=== PATIENT | female | born 1940 | race Caucasian/White ===

== ENCOUNTER 2016-11-27 08:33 | Outpatient (CLI) | payer MEDICARE, OTHER | END 2016-11-27 08:34 | disposition home or self-care (01) | DX: I10 Essential (primary) hypertension (principal); R73.01 Impaired fasting glucose; E78.5 Hyperlipidemia, unspecified ==

== ENCOUNTER 2016-12-11 10:20 | Outpatient (CLI) | payer MEDICARE, OTHER | END 2016-12-11 10:21 | disposition home or self-care (01) | DX: R31.29 Other microscopic hematuria (principal) ==

== ENCOUNTER 2016-12-20 11:16 | Outpatient (CLI) | payer MEDICARE, OTHER ==
[2016-12-20] MEDS ORDERED: IOPAMIDOL-300 100 ML VIAL IVP ONE (11:59)
== END 2016-12-20 11:17 | disposition home or self-care (01) ==
DX: R31.29 Other microscopic hematuria (principal); K57.30 Diverticulosis of large intestine without perforation or abscess without bleeding
CPT/HCPCS: 74178; Q9967

== ENCOUNTER 2017-03-19 10:19 | Outpatient (CLI) | payer MEDICARE, OTHER ==
--- NOTE | 2017-03-20 17:45 | Mammography Report ---
DIGITAL SCREENING MAMMOGRAM: 03/19/2017 CLINICAL INDICATION: A 76-year-old nulliparous patient, for screening. COMPARISON: 03/2015, 02/2014, 02/2013, 02/2012, 01/2011, 01/2010, 12/2008, 12/2007. TECHNIQUE: Routine CC and MLO projections were obtained of the breasts. FINDINGS: The breasts again demonstrate heterogeneously dense fibroglandular parenchyma bilaterally. Coarse, typically benign calcifications are present. Intramammary lymph nodes are stable. No suspici ous masses, clustered microcalcifications, or regions of architectural distortion are identified. IMPRESSION: BENIGN FINDINGS. RECOMMENDATION: ROUTINE ANNUAL SCREENING UNLESS OTHERWISE CLINICALLY INDICATED. BIRADS CATEGORY 2-BENIGN FINDINGS. STANDARD QUALIFYING STATEMENTS 1. This examination was reviewed with the aid of Computer-Aided Detection (CAD). 2. A negative or benign imaging report should not delay biopsy if clinically suspicious findings are present. Consider surgical consultation if warranted. More than 5% of cancers are not identified by i maging. 3. Dense breasts may obscure an underlying neoplasm. JOB #: [id number] EXT JOB #:[id number]
== END 2017-03-19 10:20 | disposition home or self-care (01) ==
LOC: DI 10:19
PROVIDERS: ATTEND Family Medicine
DX: Z12.31 Encounter for screening mammogram for malignant neoplasm of breast (principal)
CPT/HCPCS: 77067

== ENCOUNTER 2017-11-01 08:04 | Outpatient (CLI) | payer MEDICARE, OTHER ==
[2017-11-01 08:32] LABS: BASOPHILS # (AUTO) 0.1 10^3/uL (0.0-0.1); BASOPHILS % (AUTO) 1.3 %; EOSINOPHILS # (AUTO) 0.2 10^3/uL (0.0-0.7); EOSINOPHILS % (AUTO) 2.6 %; HGB - HEMOGLOBIN 13.6 g/dL (12.0-16.0); LYMPHOCYTES # (AUTO) 1.6 10^3/uL (1.5-3.5); LYMPHOCYTES % (AUTO) 20.3 %; MEAN CORPUSCULAR HEMOGLOBIN 33.6 pg (27.0-31.0); MEAN CORPUSCULAR HGB CONC 33.9 g/dL (32.0-36.0); MEAN CORPUSCULAR VOLUME 98.9 fL (81.0-99.0); MEAN PLATELET VOLUME 7.9 fL (7.9-10.8); MONOCYTES # (AUTO) 0.7 10^3/uL (0.0-1.0); NEUTROPHILS # (AUTO) 5.1 10^3/uL (1.5-6.6); NEUTROPHILS % (AUTO) 66.8 %; PLT - PLATELET COUNT 204 10^3/uL (130-450); RED BLOOD COUNT 4.06 10^6/uL (4.20-5.40); RED CELL DISTRIBUTION WIDTH 12.6 % (12.0-15.0); WHITE BLOOD COUNT 7.6 x10^3/uL (4.8-10.8)
[2017-11-01 08:48] LABS: ALBUMIN 3.9 g/dL (3.2-5.5); ALBUMIN/GLOBULIN RATIO 1.1 (1.0-2.2); ALKALINE PHOSPHATASE 70 IU/L (42-121); ALT ALANINE AMINOTRANSFERASE 17 IU/L (10-60); AST ASPARTATE AMINOTRANSFERASE 20 IU/L (10-42); BILIRUBIN,TOTAL 0.5 mg/dL (0.2-1.0); BUN - BLOOD UREA NITROGEN 14 mg/dL (6-20); CALCIUM 8.6 mg/dL (8.5-10.3); CARBON DIOXIDE - CO2 24 mmol/L (21-32); CHLORIDE 101 mmol/L (101-111); CHOL/HDL RATIO 4.7 (<4.4); CHOLESTEROL 173 mg/dL; CREATININE 0.9 mg/dL (0.4-1.0); GFR - MDRD 61 (>89); GLUCOSE 123 mg/dL (70-100); HDL CHOLESTEROL 37 mg/dL; LDL CHOLESTEROL,CALCULATED 96 mg/dL; LDL/HDL RATIO 2.6 (<4.4); SODIUM 136 mmol/L (135-145); TOTAL PROTEIN 7.4 g/dL (6.7-8.2); VLDL CHOLESTEROL 40 mg/dL
== END 2017-11-01 08:05 | disposition home or self-care (01) ==
LOC: LAB 08:04
PROVIDERS: ATTEND Family Medicine
DX: I10 Essential (primary) hypertension (principal); E78.5 Hyperlipidemia, unspecified
CPT/HCPCS: 36415; 80053; 80061; 83721; 85025

== ENCOUNTER 2017-11-08 07:41 | Outpatient (CLI) | payer MEDICARE, OTHER ==
[2017-11-08 08:47] LABS: HB2 TOTAL 14.9 g/dL; HEMOGLOBIN A1C 0.61 g/dL; HEMOGLOBIN A1C % 5.9 % (4.6-6.2)
== END 2017-11-08 07:42 | disposition home or self-care (01) ==
LOC: LAB 07:41
PROVIDERS: ATTEND Family Medicine
DX: R73.01 Impaired fasting glucose (principal)
CPT/HCPCS: 36415; 82947; 83036

== ENCOUNTER 2018-01-27 08:22 | Outpatient (CLI) | payer MEDICARE, OTHER ==
[2018-01-27 13:19] LABS: ALBUMIN 4.1 g/dL (3.2-5.5); ALBUMIN/GLOBULIN RATIO 1.1 (1.0-2.2); BILIRUBIN,TOTAL 0.4 mg/dL (0.2-1.0); CALCIUM 8.8 mg/dL (8.5-10.3); CREATININE 0.7 mg/dL (0.4-1.0); TOTAL PROTEIN 7.7 g/dL (6.7-8.2)
[2018-01-27 13:30] LABS: BASOPHILS # (AUTO) 0.1 10^3/uL (0.0-0.1); BASOPHILS % (AUTO) 1.1 %; EOSINOPHILS # (AUTO) 0.3 10^3/uL (0.0-0.7); EOSINOPHILS % (AUTO) 3.4 %; LYMPHOCYTES # (AUTO) 1.6 10^3/uL (1.5-3.5); LYMPHOCYTES % (AUTO) 18.8 %; MEAN CORPUSCULAR HGB CONC 34.5 g/dL (32.0-36.0); MEAN CORPUSCULAR VOLUME 98.7 fL (81.0-99.0); MEAN PLATELET VOLUME 8.9 fL (7.9-10.8); MONOCYTES # (AUTO) 0.7 10^3/uL (0.0-1.0); MONOCYTES % (AUTO) 7.9 %; NEUTROPHILS % (AUTO) 68.8 %; PLT - PLATELET COUNT 177 10^3/uL (130-450); RED CELL DISTRIBUTION WIDTH 12.7 % (12.0-15.0); WHITE BLOOD COUNT 8.7 x10^3/uL (4.8-10.8)
== END 2018-01-27 08:23 | disposition home or self-care (01) ==
LOC: LAB.WCP 08:22
PROVIDERS: ATTEND Family Medicine
DX: R10.9 Unspecified abdominal pain (principal); R05 Cough
CPT/HCPCS: 36415; 80053; 82150; 83690; 85025

== ENCOUNTER 2018-01-31 08:08 | Outpatient (CLI) | payer MEDICARE, OTHER ==
[2018-01-31] MEDS ORDERED: IOPAMIDOL-300 50 ML VIAL ONE (08:35)
[2018-01-31] MEDS ORDERED: IOPAMIDOL-300 100 ML VIAL ONE (08:35)
[2018-01-31] MEDS ORDERED: IOPAMIDOL-300 100 ML VIAL IVP ONE (09:55)
[2018-01-31] MEDS ORDERED: IOPAMIDOL-300 50 ML VIAL PO ONE (09:55)
--- NOTE | 2018-01-31 12:20 | CT Report ---
CT ABDOMEN AND PELVIS WITH CONTRAST: 01/31/2018 CLINICAL INDICATION: Pain, history of bladder cancer. COMPARISON: 12/20/2016. TECHNIQUE: Axial CT images of the abdomen and pelvis were obtained with 100 mL Isovue-300 intravenously as well as oral contrast. FINDINGS: Limited evaluation of the lung bases demonstrates a moderate hiatal hernia. ABDOMEN: The liver demonstrates diffuse decrease in attenuation, compatible with fatty infiltration. No focal parenchymal lesion or biliary dilatation is seen. The patient is status post cholecystectomy. The spleen, pancreas, kidneys and adrenal glands are unremarkable. No bowel dilatation, free gas, or free fluid is present. No abdominal adenopathy is seen. PELVIS: The pelvic organs appear unremarkable. No pelvic adenopathy or free fluid is present. Sigmoid diverticulosis is present, without CT evidence of diverticulitis. Osseous structures demonstrate degenerative changes. IMPRESSION: FATTY INFILTRATION OF THE LIVER. DIVERTICULOSIS WITHOUT CT EVIDENCE OF DIVERTICULITIS. MODERATE HIATAL HERNIA. CT DOSE REDUCTION STATEMENT In accordance with CT protocol optimization, one or more of the following dose reduction techniques were utilized for this exam: automated exposure control, adjustment of mA and/or KV based on patient size, or use of iterative reconstructive technique. TD: 01/31/2018 12:19 CINDY
== END 2018-01-31 08:09 | disposition home or self-care (01) ==
LOC: DI 08:08
PROVIDERS: ATTEND Family Medicine
DX: K76.0 Fatty (change of) liver, not elsewhere classified (principal); K57.30 Diverticulosis of large intestine without perforation or abscess without bleeding; K44.9 Diaphragmatic hernia without obstruction or gangrene
CPT/HCPCS: 74177; Q9967

== ENCOUNTER 2018-03-06 17:03 | Outpatient (CLI) | payer MEDICARE, OTHER ==
--- NOTE | 2018-03-07 10:10 | XRAY Report ---
THREE VIEW LEFT KNEE: 03/06/2018 CLINICAL INDICATION: Fall, pain. FINDINGS: AP, lateral, sunrise views of the left knee demonstrate no evidence of fracture or dislocation. The joint spaces demonstrate mild osteoarthritis. No effusion is present. IMPRESSION: MILD OSTEOARTHRITIS. NO EVIDENCE OF FRACTURE. TD: 03/07/2018 10:02
--- NOTE | 2018-03-07 10:10 | XRAY Report ---
NASAL BONES: 03/06/2018 CLINICAL INDICATION: Fall, pain. FINDINGS: Bilateral lateral views of the nasal bones demonstrate no evidence of fracture. The nasal septum is midline. The visualized paranasal sinuses demonstrate no air fluid levels. IMPRESSION: NO EVIDENCE OF NASAL BONE FRACTURE. TD: 03/07/2018 10:03
== END 2018-03-06 17:04 | disposition home or self-care (01) ==
LOC: DI 17:03
PROVIDERS: ATTEND Family Medicine
DX: M17.12 Unilateral primary osteoarthritis, left knee (principal); Z91.81 History of falling
CPT/HCPCS: 70160

== ENCOUNTER 2018-03-24 15:19 | Outpatient (CLI) | payer MEDICARE, OTHER ==
--- NOTE | 2018-03-26 12:22 | Mammography Report ---
Procedure Date: 03/24/2018 Accession Number: [id number] / [id number] Procedure: MIGUELITO - Screening Mammo Dig Bilat CPT Code: FULL RESULT: EXAM: Screening Mammo Dig Bilat DATE: 03/24/2018 3:36 PM CLINICAL HISTORY: Routine screening TECHNIQUE: Bilateral CC and MLO views were obtained. COMPARISON: 03/19/2017, 03/22/2016, 03/14/15, 02/23/2014, 02/13/2013, 02/18/2012, and 01/24/2011 FINDINGS: There are scattered fibroglandular densities. No suspicious masses, clustered microcalcifications, skin thickening, or regions of architectural distortion are identified. No interval change. IMPRESSION: Negative. RECOMMENDATION: Routine annual screening unless otherwise clinically indicated. BIRADS CATEGORY 1: Negative STANDARD QUALIFYING STATEMENTS: 1. This examination was reviewed with the aid of Computer-Aided Detection (CAD). 2. A negative or benign imaging report should not delay biopsy if clinically suspicious findings are present. Consider surgical consultation if warrented. More than 5% of cancers are not identified by imaging. 3. Dense breasts may obscure an underlying neoplasm.
== END 2018-03-24 15:20 | disposition home or self-care (01) ==
LOC: DI 15:19
PROVIDERS: ATTEND Family Medicine
DX: Z12.31 Encounter for screening mammogram for malignant neoplasm of breast (principal)
CPT/HCPCS: 77067

== ENCOUNTER 2018-05-28 08:34 | Outpatient (CLI) | payer MEDICARE, OTHER ==
[2018-05-28 09:18] LABS: ALBUMIN 4.1 g/dL (3.2-5.5); ALBUMIN/GLOBULIN RATIO 1.1 (1.0-2.2); ALKALINE PHOSPHATASE 64 IU/L (42-121); ALT ALANINE AMINOTRANSFERASE 18 IU/L (10-60); AST ASPARTATE AMINOTRANSFERASE 21 IU/L (10-42); BILIRUBIN,TOTAL 0.8 mg/dL (0.2-1.0); BUN - BLOOD UREA NITROGEN 13 mg/dL (6-20); CALCIUM 9.1 mg/dL (8.5-10.3); CARBON DIOXIDE - CO2 27 mmol/L (21-32); CHLORIDE 102 mmol/L (101-111); CHOL/HDL RATIO 4.8 (<4.4); CHOLESTEROL 188 mg/dL; CREATININE 0.7 mg/dL (0.4-1.0); GFR - MDRD 81 (>89); GLUCOSE 141 mg/dL (70-100); HDL CHOLESTEROL 39 mg/dL; LDL CHOLESTEROL,CALCULATED 108 mg/dL; LDL/HDL RATIO 2.8 (<4.4); SODIUM 137 mmol/L (135-145); TOTAL PROTEIN 7.7 g/dL (6.7-8.2); VLDL CHOLESTEROL 41 mg/dL
[2018-05-28 09:19] LABS: HB2 TOTAL 14.9 g/dL; HEMOGLOBIN A1C 0.59 g/dL; HEMOGLOBIN A1C % 5.8 % (4.6-6.2)
== END 2018-05-28 08:35 | disposition home or self-care (01) ==
LOC: LAB 08:34
PROVIDERS: ATTEND Family Medicine
DX: R73.01 Impaired fasting glucose (principal); E78.5 Hyperlipidemia, unspecified; I10 Essential (primary) hypertension
CPT/HCPCS: 36415; 80053; 80061; 83036; 83721

== ENCOUNTER 2018-09-18 16:50 | Emergency (ER) | payer MEDICARE, OTHER ==
--- NOTE | 2018-09-18 17:53 | ED Physician Documentation ---
PD HPI UPPER EXT INJURY - Stated complaint Stated Complaint: R WRIST INJ - Chief complaint Chief Complaint: Trauma Ext - History obtained from History obtained from: Patient - History of Present Illness Location: Right, Wrist Type of injury: Fall Where injury occurred: Home Timing - onset: How many minutes ago (45) Worsened by: Moving, Palpating Similar symptoms before: Has not had sx before - Additonal information Additional information: The patient is a 78-year-old right hand dominant female who tripped and fell while walking outdoors, falling onto outstretched right hand. The incident occurred about 45 minutes prior to arrival. She presents now with pain in her right wrist. She also impacted her face, but denies significant injury to her face. She denies loss of consciousness. She denies any other injuries. Tetanus status is unknown. Review of Systems Constitutional: denies: Fever Ears: denies: Tinnitus/ringing Nose: denies: Congestion Throat: reports: Other (Abrasion of upper lip.). denies: Sore throat Cardiac: denies: Chest pain / pressure Respiratory: denies: Dyspnea, Cough GI: denies: Abdominal Pain, Nausea, Vomiting : denies: Dysuria, Incontinent Skin: reports: Abrasion (s) (upper lip) Musculoskeletal: reports: Joint pain (right wrist) Neurologic: denies: Focal weakness, Numbness, Headache, LOC PD PAST MEDICAL HISTORY - Past Medical History Past Medical History: Yes Cardiovascular: Hypertension, High cholesterol Respiratory: None Endocrine/Autoimmune: None GI: GERD : None HEENT: None, Chronic vision loss Psych: Depression Musculoskeletal: Osteoarthritis Derm: None - Past Surgical History Past Surgical History: Yes General: Colonoscopy HEENT: Tonsil/Adenoidectomy - Present Medications Home Medications: Ambulatory Orders Medication Instructions Recorded Confirmed Aspirin [Aspir 81] 81 mg ORAL BID 04/12/14 04/12/14 Lisinopril 1 mg ORAL 04/12/14 04/12/14 Omeprazole 20 mg PO 04/12/14 04/12/14 Sertraline [Zoloft] 1 mg ORAL 04/12/14 04/12/14 Simvastatin 1 mg ORAL 04/12/14 04/12/14 Hydrocodone/Acetaminophen 1 each PO Q6H PRN #14 tablet 09/18/18 [Hydrocodon-Acetaminophen 5-325] - Allergies Allergies/Adverse Reactions: Allergies Allergy/AdvReac Type Severity Reaction Status Date / Time Sulfa (Sulfonamide AdvReac Rash Verified 09/18/18 17:08 Antibiotics) - Social History Does the pt smoke?: No Smoking Status: Never smoker Does the pt drink ETOH?: Yes Does the pt have substance abuse?: No - Immunizations Immunizations are current?: Yes PD ED PE NORMAL - Vitals Vital signs reviewed: Yes (initially hypertensive.) - General General: Alert and oriented X 3, Well developed/nourished - HEENT HEENT: EOMI, Other (There is superficial abrasion on the cutaneous surface of the upper lip, right side. There is a superficial laceration on the buccal surface of the lip. Dentition is intact, without tenderness to palpation.) - Neck Neck: No bony TTP, No JVD - Cardiac Cardiac: RRR - Respiratory Respiratory: No respiratory distress, Clear bilaterally - Abdomen Abdomen: Soft, Non tender - Back Back: No spinal TTP - Derm Derm: No rash - Extremities Extremities: No edema, No calf tenderness / cord, Other (There is deformity noted at the right wrist, with tenderness to palpation particularly at the radial aspect. There is no break in the integument. Distal neurovascular is intact.) - Neuro Neuro: Alert and oriented X 3, No motor deficit, No sensory deficit Results - Vitals Vitals: Vital Signs - 24 hr 09/18/18 09/18/18 17:06 18:32 Temperature 36.3 C L Heart Rate 86 86 Respiratory 20 18 Rate Blood Pressure 143/100 H 138/90 H O2 Saturation 95 98 Oxygen O2 Source Room air - Rads (name of study) Right wrist Radiology: Prelim report reviewed, EMP read contemporaneously, See rad report (1) Comminuted, mildly displaced, moderately impacted and angulated intra- articular distal radius fracture. 2) Small fracture fragment projecting in the ulnocarpal joint space with uncertain donor site. 3) Dorsal dislocation of the carpus with respect to the distal ulna.) Procedures - Splint (location) right wrist Splint applied by: Physician Type of splint: Fiberglass, Short arm Other: Patient tolerated well, No complications, Neurovascular intact, Sling provided PD MEDICAL DECISION MAKING - ED course Complexity details: reviewed results, re-evaluated patient, considered differential, d/w patient, d/w family, d/w data virtualization consultant ED course: The patient's presentation is significant for displaced, impacted, intra- articular right distal radius fracture. I discussed the injury with Dr. Cheung, orthopedic surgeon, who advises splinting and outpatient follow-up. He anticipates referral to a hand specialist for surgical repair. Treatment in the emergency department included application of a volar short arm splint, administr ation of ibuprofen 600 mg orally, and administration of tetanus booster. An arm sling was applied. I discussed with her and her the expected course of injury, the importance of orthopedic follow-up, as well as potentially worrisome signs or symptoms that should prompt reevaluation in the emergency department. She is being discharged with prescription for Vicodin, 14 tablets. Departure - Departure Disposition: 01 Home, Self Care Clinical Impression: Fracture of right distal radius Qualifiers: Encounter type: initial encounter Fracture type: closed Fracture morphology: other intra-articular Qualified Code(s): S52.571A - Other intraarticular fracture of lower end of right radius, initial encounter for closed fracture Condition: Stable Instructions: ED Fx Wrist General Follow-Up: [facility] [Provider Group] Jerome Walsh DO [Primary Care Provider] - Prescriptions: Hydrocodone/Acetaminophen [Hydrocodon-Acetaminophen 5-325] 1 each PO Q6H PRN #14 tablet PRN Reason: pain Comments: Keep the splint dry. Keep your right arm elevated above the level of your heart as much of the time as possible. Apply ice pack to your wrist intermittently for the next 3 or 4 days. Even through the splint it will help to decrease the swelling. You can use ibuprofen, up to 600 mg 3 times daily for its anti-inflammatory effect. You can use Vicodin as prescribed if needed for pain. Follow-up with orthopedics within the next 5 days. Call tomorrow to schedule appointment. Return to the emergency department if you develop markedly increasing pain, or otherwise worsening symptoms. Discharge Date/Time: 09/18/18 18:32
--- NOTE | 2018-09-18 18:01 | XRAY Report ---
Reason: right wrist injury Procedure Date: 09/18/2018 Accession Number: [id number] / [id number] Procedure: XR - Wrist 3 View RT CPT Code: FULL RESULT: EXAM: RIGHT WRIST RADIOGRAPHY EXAM DATE: 09/18/2018 05:20 PM. CLINICAL HISTORY: Right wrist injury. Right wrist pain after fall onto outstretched hand. COMPARISON: None. TECHNIQUE: 3 views. FINDINGS: Bones: Comminuted intra-articular distal radius fracture, with mild dorsal displacement and moderate impaction and dorsal angulation of the distal fracture fragments. Small fracture fragment projecting in the ulnocarpal joint space on the frontal view with an uncertain donor site. Joints: Dorsal dislocation of the carpus with respect to the distal ulna. Mild subchondral degenerative changes at the first CMC joint. Soft Tissues: Soft tissue swelling and deformity overlying the wrist. IMPRESSION: 1. Comminuted, mildly displaced, moderately impacted and angulated intra-articular distal radius fracture. 2. Small fracture fragment projecting in the ulnocarpal joint space with uncertain donor site. 3. Dorsal dislocation of the carpus with respect to the distal ulna. RADIA
[2018-09-18] MEDS ORDERED: IBUPROFEN 600 MG TABLET PO STA (18:19)
[2018-09-18] MEDS ORDERED: TETANUS/DIPHTHERIA/PERTUSSIS 0.5 ML SYRINGE IM ONE (18:23)
[2018-09-18 18:33] VITALS: BP 138/90
== END 2018-09-18 18:32 | disposition home or self-care (01) ==
LOC: ED 16:50
DX: S52.571A Other intraarticular fracture of lower end of right radius, initial encounter for closed fracture (principal); S00.511A Abrasion of lip, initial encounter; W01.0XXA Fall on same level from slipping, tripping and stumbling without subsequent striking against object, initial encounter; Y93.01 Activity, walking, marching and hiking; Y92.009 Unspecified place in unspecified non-institutional (private) residence as the place of occurrence of the external cause; I10 Essential (primary) hypertension; E78.00 Pure hypercholesterolemia, unspecified; Z79.82 Long term (current) use of aspirin; Z23 Encounter for immunization
CPT/HCPCS: 29125; 73110; 90471; 90715; 99283; A9270

== ENCOUNTER 2018-12-16 12:53 | Outpatient (CLI) | payer MEDICARE, OTHER ==
--- NOTE | 2018-12-16 16:52 | DEXA Report ---
Reason: BONE DISORDER Procedure Date: 12/16/2018 Accession Number: [id number] / [id number] Procedure: DEX - Dexa Spine and/or Hip CPT Code: FULL RESULT: EXAM: Dexa Spine and/or Hip DATE: 12/16/2018 1:26 PM CLINICAL HISTORY: BONE DISORDER TECHNIQUE: Dual energy x-ray absorptiometry (DXA) was performed on a [employer] System. Regions measured are the AP Spine, femoral neck, and if needed forearm. COMPARISON: None. In accordance with the International Society for Clinical Densitometry (ISCD) guidelines, data from previous exams may be reanalyzed using current recommendations and techniques. This is done to allow a more accurate basis for comparison with the current study. FINDINGS: The data for the lumbar spine is as follows: BMD (g/cm/cm) T-SCORE Z-SCORE REGION L1 0.776 -3.0 -1.4 L2 0.777 -3.5 -2.0 L3 0.944 -2.1 -0.6 L4 1.059 -1.2 0.4 TOTAL 0.905 -2.3 -0.8 NOTE: All evaluable vertebrae are used for classification The data for the hip is as follows: BMD (g/cm/cm) T-SCORE Z-SCORE REGION Neck 0.660 -2.7 -0.9 TOTAL 0.711 -2.4 -0.7 NOTE: The femoral neck or total proximal femur, whichever is lowest, is used for classification. IMPRESSION: THE WHO CLASSIFICATION BASED ON THE INTERNATIONAL REFERENCE STANDARD IS OSTEOPOROSIS. THE FRACTURE RISK IS HIGH. RECOMMENDATION: Patients with diagnosis of osteoporosis or osteopenia should have regular bone mineral density assessment. For those eligible for Medicare, routine testing is allowed once every 2 years. Testing frequency can be increased for patients who have rapidly progressing disease or for those who are receiving medical therapy to restore bone mass. COMMENT: World Health Organization (WHO) definitions for osteoporosis and osteopenia: NORMAL BMD: T-score at -1.0 or higher, fracture risk is low OSTEOPENIA BMD: T-score between -1.0 and -2.5, fracture risk is increased. OSTEOPOROSIS BMD: T-score at -2.5 or lower, fracture risk is high. National Osteoporosis Foundation recommends: 1. Obtain adequate dietary calcium (at least 1200 mg per day) and vitamin D (400-800 international units per day). 2. Participate, as appropriate, in regular weightbearing and muscle-strengthening exercise. 3. Avoid tobacco use and reduce alcohol and caffeine intake. 4. For more detailed information see the website at www.NOF.org.
== END 2018-12-16 12:54 | disposition home or self-care (01) ==
LOC: DI 12:53
PROVIDERS: ATTEND Family Medicine
DX: M81.0 Age-related osteoporosis without current pathological fracture (principal)
CPT/HCPCS: 77080

== ENCOUNTER 2019-02-04 08:00 | Outpatient (CLI) | payer MEDICARE, OTHER | END 2019-02-04 23:59 | disposition home or self-care (01) | LOC: LAB.WCP 08:00 | PROVIDERS: ATTEND Family Medicine | DX: R30.0 Dysuria (principal) | CPT/HCPCS: 81002 ==

== ENCOUNTER 2019-02-17 08:00 | Outpatient (CLI) | payer MEDICARE, OTHER ==
[2019-02-17 15:35] LABS: BILIRUBIN,URINE NEGATIVE (NEGATIVE); GLUCOSE, URINE (UA) NEGATIVE (NEGATIVE); KETONES,URINE (UA) NEGATIVE (NEGATIVE); LEUKOCYTE ESTERASE, URINE TRACE (NEGATIVE); NITRITE,URINE NEGATIVE (NEGATIVE); OCCULT BLOOD,URINE TRACE-LYSE (NEGATIVE); PH,URINE 6.5 PH (5.0-7.5); PROTEIN,URINE NEGATIVE (NEGATIVE); UROBILINOGEN,URINE 0.2 (NORMAL) E.U./dL (NORMAL)
[2019-02-17 15:39] LABS: CLARITY,URINE CLEAR (CLEAR)
[2019-02-17 15:43] LABS: RBC,URINE 0-5 /HPF (0-5); SQUAMOUS EPITHELIAL CELL,UR RARE Squamous (<= Few)
[2019-02-17 15:44] LABS: BACTERIA,URINE Rare /HPF (None Seen)
== END 2019-02-17 23:59 | disposition home or self-care (01) ==
LOC: LAB 08:00
PROVIDERS: ATTEND Family Medicine
DX: R30.0 Dysuria (principal)
CPT/HCPCS: 81001

== ENCOUNTER 2019-05-11 14:37 | Outpatient (CLI) | payer MEDICARE, OTHER ==
--- NOTE | 2019-05-12 09:01 | Mammography Report ---
Reason: SCREENING MAMMO Procedure Date: 05/11/2019 Accession Number: [id number] / [id number] Procedure: MIGUELITO - Screening Mammo w/Qamar CPT Code: FULL RESULT: EXAM: Screening Mammo w/Qamar DATE: 05/11/2019 3:38 PM CLINICAL HISTORY: Screening encounter. History of nulliparity and early menses. TECHNIQUE: (B) - Bilateral CC and MLO views were obtained. COMPARISON: 03/24/2018 through 03/14/2015. PARENCHYMAL PATTERN: (A) - The breast(s) demonstrate(s) scattered fibroglandular densities. FINDINGS: There are coarse typically benign calcifications. There are no suspicious masses, calcifications, or areas of distortion. IMPRESSION: Benign findings. BI-RADS category 2. RECOMMENDATION: (ANNUAL) - Recommend routine annual screening mammography. BI-RADS CATEGORY: (2) - Benign Findings. STANDARD QUALIFYING STATEMENTS: 1. This examination was not reviewed with the aid of Computer-Aided Detection (CAD). 2. A negative or benign imaging report should not preclude biopsy if clinically suspicious findings are present. 3. Dense breasts may obscure an underlying neoplasm. 4. This examination was reviewed with the aid of 3D breast imaging (tomosynthesis).
== END 2019-05-11 14:38 | disposition home or self-care (01) ==
LOC: DI 14:37
DX: Z12.31 Encounter for screening mammogram for malignant neoplasm of breast (principal)
CPT/HCPCS: 77063; 77067

== ENCOUNTER 2020-06-26 14:09 | Outpatient (CLI) | payer MEDICARE, OTHER ==
--- NOTE | 2020-06-29 08:15 | Mammography Report ---
BILATERAL DIGITAL SCREENING MAMMOGRAM 3D/2D: 06/26/2020 CLINICAL: Routine screening. Comparison is made to exams dated: 05/11/2019 mammogram, 03/24/2018 mammogram, 03/19/2017 mammogram, 03/07 mammogram, 03/14/2015 mammogram, and 02/23/2014 mammogram - [facility]. There are scattered fibroglandular elements in both breasts. No significant masses, calcifications, or other findings are seen in either breast. There has been no significant interval change. IMPRESSION: NEGATIVE There is no mammographic evidence of malignancy. A 1 year screening mammogram is recommended. This exam was interpreted at Station ID: [id number]. NOTE: For mammograms, a report in lay terms will be sent to the patient. Approximately 15% of breast malignancies will not be visualized mammographically. In the management of a palpable breast mass, a negative mammogram must not discourage biopsy of a clinically suspicious lesion. Electronically Signed By: Kendrick bass/barry:06/27/2020 17:09:34 ACR BI-RADS Category 1: Negative 3341F PARENCHYMAL PATTERN: (A) - The breast(s) demonstrate(s) scattered fibroglandular densities. BI-RADS CATEGORY: (1) - 1 RECOMMENDATION: (ANNUAL) - Recommend routine annual screening mammography. [id number] 1 year screening LATERALITY: (B)
== END 2020-06-26 14:10 | disposition home or self-care (01) ==
LOC: DI 14:09
DX: Z12.31 Encounter for screening mammogram for malignant neoplasm of breast (principal)
CPT/HCPCS: 77063; 77067

== ENCOUNTER 2020-12-19 07:00 | Outpatient (CLI) | payer MEDICARE, OTHER ==
[2020-12-19 18:24] LABS: BASOPHILS # (AUTO) 0.1 10^3/uL (0.0-0.1); BASOPHILS % (AUTO) 0.8 %; EOSINOPHILS # (AUTO) 0.3 10^3/uL (0.0-0.7); EOSINOPHILS % (AUTO) 2.9 %; HGB - HEMOGLOBIN 13.2 g/dL (12.0-16.0); LYMPHOCYTES # (AUTO) 1.9 10^3/uL (1.5-3.5); LYMPHOCYTES % (AUTO) 20.5 %; MEAN CORPUSCULAR HEMOGLOBIN 33.8 pg (27.0-31.0); MEAN CORPUSCULAR HGB CONC 32.2 g/dL (32.0-36.0); MEAN CORPUSCULAR VOLUME 105.1 fL (81.0-99.0); MEAN PLATELET VOLUME 10.5 fL (7.9-10.8); MONOCYTES # (AUTO) 0.9 10^3/uL (0.0-1.0); MONOCYTES % (AUTO) 9.8 %; NEUTROPHILS # (AUTO) 6.2 10^3/uL (1.5-6.6); NEUTROPHILS % (AUTO) 65.6 %; PLT - PLATELET COUNT 258 10^3/uL (130-450); RED CELL DISTRIBUTION WIDTH 11.9 % (12.0-15.0); WHITE BLOOD COUNT 9.5 x10^3/uL (4.8-10.8)
[2020-12-19 18:53] LABS: ESTIMATED AVERAGE GLUCOSE 120 mg/dL (70-100); HEMOGLOBIN A1c% 5.8 % (4.27-6.07)
[2020-12-19 18:54] LABS: ALBUMIN 4.1 g/dL (3.2-5.5); ALBUMIN/GLOBULIN RATIO 1.1 (1.0-2.2); ALKALINE PHOSPHATASE 75 IU/L (42-121); ALT ALANINE AMINOTRANSFERASE 19 IU/L (10-60); AST ASPARTATE AMINOTRANSFERASE 20 IU/L (10-42); BILIRUBIN,TOTAL 0.5 mg/dL (0.2-1.0); BUN - BLOOD UREA NITROGEN 14 mg/dL (6-20); CALCIUM 9.1 mg/dL (8.5-10.3); CARBON DIOXIDE - CO2 26 mmol/L (21-32); CHLORIDE 103 mmol/L (101-111); CHOL/HDL RATIO 4.1 (<4.4); CHOLESTEROL 183 mg/dL; CREATININE 0.9 mg/dL (0.4-1.0); GFR - MDRD 60 (>89); GLUCOSE 96 mg/dL (70-100); HDL CHOLESTEROL 45 mg/dL; LDL CHOLESTEROL,CALCULATED 87 mg/dL; LDL/HDL RATIO 1.9 (<4.4); POTASSIUM 4.7 mmol/L (3.5-5.0); SODIUM 137 mmol/L (135-145); TOTAL PROTEIN 7.8 g/dL (6.7-8.2); TRIGLYCERIDES 254 mg/dL; VLDL CHOLESTEROL 51 mg/dL
== END 2020-12-19 23:59 | disposition home or self-care (01) ==
LOC: LAB.WCP 07:00
PROVIDERS: ATTEND Family Medicine
DX: I10 Essential (primary) hypertension (principal); R73.01 Impaired fasting glucose
CPT/HCPCS: 36415; 80053; 80061; 83036; 83721; 85025

== ENCOUNTER 2021-07-18 12:02 | Day surgery (SDC) | payer MEDICARE, OTHER ==
[2021-07-18] MEDS ORDERED: LACTATED RINGERS 1,000 ML IV ONE ×2 (12:34→14:07)
--- NOTE | 2021-07-18 12:57 | ANESTHESIA ---
Pre-Anesthesia VS, & Labs - Diagnosis positive cologuard - Procedure colonoscopy Vital Signs: Temp Pulse Resp BP Pulse Ox 36.7 C 93 18 170/94 H 97 07/18/21 12:18 07/18/21 12:18 07/18/21 12:18 07/18/21 12:18 07/18/21 12:18 Height: 5 ft 4 in Weight (kg): 70.5 kg Body Mass Index: 26.6 BMI Classification: Overweight - NPO >8 hours - Is Patient ?: No - Lab Results Lab results reviewed: No Home Medications and Allergies Lisinopril 20 mg ORAL 04/12/14 Omeprazole 20 mg PO 04/12/14 Sertraline [Zoloft] 50 mg ORAL 04/12/14 Simvastatin 40 mg ORAL 04/12/14 Allergies/Adverse Reactions: Allergies Allergy/AdvReac Type Severity Reaction Status Date / Time Sulfa (Sulfonamide AdvReac Rash Verified 09/18/18 17:08 Antibiotics) Anes History & Medical History - Anesthetic History Anesthesia Complications: reports: No previous complications Family history of Anesthesia Complications: Denies Family history of Malignant Hyperthermia: Denies - Medical History Cardiovascular: reports: Hypertension, High cholesterol Pulmonary: reports: None Gastrointestinal: reports: GERD Urinary: reports: None Musculoskeletal: reports: Osteoarthritis Endocrine/Autoimmune: reports: None Skin: reports: None Smoking Status: Never smoker - Surgical History General: reports: Colonoscopy Eyes Ears Nose Throat (EENT): reports: Tonsil/Adenoidectomy Exam General: Alert, Oriented x3, Cooperative, No acute distress Dental: WNL Mouth Openin Fingerbreadth Neck Mobility: Normal Mallampati classification: II Respiratory: Lungs clear, Normal breath sounds, No respiratory distress, No accessory muscle use Cardiovascular: Regular rate, Normal S1, Normal S2, No murmurs Plan Anesthesia Type: General, Total IV Consent for Procedure(s) Verified and Reviewed: Yes Code Status: Attempt Resuscitation ASA classification: 2-Mild systemic disease Is this case an emergency?: No
[2021-07-18] MEDS ORDERED: MIDAZOLAM 2 MG/2 ML VIAL ONE (13:26)
[2021-07-18] MEDS ORDERED: PROPOFOL 200 MG/20 ML VIAL IVP ONE (13:26)
[2021-07-18] MEDS ORDERED: GLYCOPYRROLATE 1 MG/5 ML VIAL ONE (13:41)
[2021-07-18 14:22] VITALS: BP 128/60
--- NOTE | 2021-07-18 16:31 | ANESTHESIA POST OP EVALUATION ---
Anesthesia Post Eval - Post Anesthesia Eval Vitals: Last Vital Signs Temp 36.4 C L 07/18/21 14:20 Pulse 81 07/18/21 14:20 Resp 16 07/18/21 14:20 BP 128/60 07/18/21 14:20 Pulse Ox 94 07/18/21 14:20 CV Function Including HR & BP: Stable Pain Control: Satisfactory Nausea & Vomiting: Negative Mental Status: Baseline Respiratory Status: Airway Patent Hydration Status: Satisfactory Anesthesia Complications: None
== END 2021-07-18 12:03 | disposition home or self-care (01) ==
LOC: SDS 12:02
PROVIDERS: ATTEND Surgery
PROC: 0DBP8ZZ Excision of Rectum, Via Natural or Artificial Opening Endoscopic (ICD-10-PCS; 2021-07-18)
PROC: 0DBK8ZZ Excision of Ascending Colon, Via Natural or Artificial Opening Endoscopic (ICD-10-PCS; principal; 2021-07-18 13:15)
DX: R19.5 Other fecal abnormalities (principal); D12.2 Benign neoplasm of ascending colon; K62.1 Rectal polyp; K57.30 Diverticulosis of large intestine without perforation or abscess without bleeding; K64.8 Other hemorrhoids; K64.4 Residual hemorrhoidal skin tags; J44.9 Chronic obstructive pulmonary disease, unspecified; I10 Essential (primary) hypertension; E78.00 Pure hypercholesterolemia, unspecified; K21.9 Gastro-esophageal reflux disease without esophagitis; F32.9 Major depressive disorder, single episode, unspecified; Z79.899 Other long term (current) drug therapy
CPT/HCPCS: 45380; 45385; J7120

== ENCOUNTER 2021-08-25 11:16 | Outpatient (CLI) | payer MEDICARE, OTHER ==
--- NOTE | 2021-08-28 15:27 | Mammography Report ---
BILATERAL DIGITAL SCREENING MAMMOGRAM 3D/2D: 08/25/2021 CLINICAL: Routine screening. Comparison is made to exams dated: 06/26/2020 mammogram, 05/11/2019 mammogram, and 03/24/2018 mammogram - [facility]. There are scattered fibroglandular elements in both breasts. No significant masses, calcifications, or other findings are seen in either breast. There has been no significant interval change. IMPRESSION: NEGATIVE There is no mammographic evidence of malignancy. A 1 year screening mammogram is recommended. This exam was interpreted at Station ID: [id number]. NOTE: For mammograms, a report in lay terms will be sent to the patient. Approximately 15% of breast malignancies will not be visualized mammographically. In the management of a palpable breast mass, a negative mammogram must not discourage biopsy of a clinically suspicious lesion. Electronically Signed By: Stiven Hay M.D. ar/chavarad:08/25/2021 13:01:18 ACR BI-RADS Category 1: Negative 3341F PARENCHYMAL PATTERN: (A) - The breast(s) demonstrate(s) scattered fibroglandular densities. BI-RADS CATEGORY: (1) - 1 RECOMMENDATION: (ANNUAL) - Recommend routine annual screening mammography. [id number] 1 year screening LATERALITY: (B)
== END 2021-08-25 11:17 | disposition home or self-care (01) ==
LOC: DI 11:16
DX: Z12.31 Encounter for screening mammogram for malignant neoplasm of breast (principal)

== ENCOUNTER 2021-09-18 08:21 | Outpatient (CLI) | payer MEDICARE, OTHER ==
[2021-09-18 08:41] LABS: BASOPHILS # (AUTO) 0.1 10^3/uL (0.0-0.1); BASOPHILS % (AUTO) 0.8 %; EOSINOPHILS # (AUTO) 0.2 10^3/uL (0.0-0.7); EOSINOPHILS % (AUTO) 3.6 %; HCT - HEMATOCRIT 41.5 % (37.0-47.0); HGB - HEMOGLOBIN 14.2 g/dL (12.0-16.0); LYMPHOCYTES # (AUTO) 1.5 10^3/uL (1.5-3.5); LYMPHOCYTES % (AUTO) 23.7 %; MEAN CORPUSCULAR HEMOGLOBIN 34.6 pg (27.0-31.0); MEAN CORPUSCULAR HGB CONC 34.2 g/dL (32.0-36.0); MEAN CORPUSCULAR VOLUME 101.2 fL (81.0-99.0); MEAN PLATELET VOLUME 9.6 fL (7.9-10.8); MONOCYTES # (AUTO) 0.7 10^3/uL (0.0-1.0); MONOCYTES % (AUTO) 10.7 %; NEUTROPHILS # (AUTO) 3.9 10^3/uL (1.5-6.6); NEUTROPHILS % (AUTO) 60.9 %; PLT - PLATELET COUNT 188 10^3/uL (130-450); RED CELL DISTRIBUTION WIDTH 11.6 % (12.0-15.0); WHITE BLOOD COUNT 6.3 x10^3/uL (4.8-10.8)
[2021-09-18 09:04] LABS: ALBUMIN 4.2 g/dL (3.2-5.5); ALBUMIN/GLOBULIN RATIO 1.1 (1.0-2.2); ALKALINE PHOSPHATASE 66 IU/L (42-121); ALT ALANINE AMINOTRANSFERASE 18 IU/L (10-60); AST ASPARTATE AMINOTRANSFERASE 22 IU/L (10-42); BILIRUBIN,TOTAL 0.9 mg/dL (0.2-1.0); BUN - BLOOD UREA NITROGEN 17 mg/dL (6-20); CALCIUM 9.3 mg/dL (8.5-10.3); CARBON DIOXIDE - CO2 29 mmol/L (21-32); CHLORIDE 100 mmol/L (101-111); CHOL/HDL RATIO 4.5 (<4.4); CHOLESTEROL 207 mg/dL; CREATININE 0.9 mg/dL (0.4-1.0); GFR - MDRD 60 (>89); GLUCOSE 121 mg/dL (70-100); HDL CHOLESTEROL 46 mg/dL; LDL CHOLESTEROL,CALCULATED 104 mg/dL; LDL/HDL RATIO 2.3 (<4.4); POTASSIUM 4.6 mmol/L (3.5-5.0); SODIUM 139 mmol/L (135-145); TOTAL PROTEIN 7.9 g/dL (6.7-8.2); TRIGLYCERIDES 283 mg/dL; VLDL CHOLESTEROL 57 mg/dL
[2021-09-18 11:41] LABS: ESTIMATED AVERAGE GLUCOSE 117 mg/dL (70-100); HEMOGLOBIN A1c% 5.7 % (4.27-6.07)
== END 2021-09-18 08:22 | disposition home or self-care (01) ==
LOC: LAB 08:21
PROVIDERS: ATTEND Family Medicine
DX: E78.5 Hyperlipidemia, unspecified (principal); R73.01 Impaired fasting glucose; M89.9 Disorder of bone, unspecified
CPT/HCPCS: 36415; 80053; 80061; 83036; 83721; 85025

== ENCOUNTER 2021-09-22 09:46 | Outpatient (CLI) | payer MEDICARE, OTHER ==
--- NOTE | 2021-09-22 11:41 | XRAY Report ---
PROCEDURE: Chest 2 View X-Ray INDICATIONS: COPD, SHORT OF BREATH TECHNIQUE: 2 view(s) of the chest. COMPARISON: None. FINDINGS: Surgical changes and devices: None. Lungs and pleura: No pleural effusions or pneumothorax. Lungs are clear. Mediastinum: Mediastinal contours are normal. Heart size is normal. Bones and chest wall: No suspicious bony abnormalities. Soft tissues appear unremarkable. IMPRESSION: No acute cardiopulmonary process demonstrated radiographically. Reviewed by: Jed Brown MD on 09/22/2021 11:40 AM [facility] Approved by: Jed Brown MD on 09/22/2021 11:40 AM [facility] Station ID: [id number]
== END 2021-09-22 09:47 | disposition home or self-care (01) ==
LOC: DI 09:46
PROVIDERS: ATTEND Family Medicine
DX: J44.9 Chronic obstructive pulmonary disease, unspecified (principal); R06.2 Wheezing; R06.02 Shortness of breath
CPT/HCPCS: 36415; 84484

== ENCOUNTER 2022-01-01 12:41 | Outpatient (CLI) | payer MEDICARE, OTHER ==
--- NOTE | 2022-01-01 16:42 | CT Report ---
PROCEDURE: CHEST WO INDICATIONS: RIGHT SIDED RIB PAIN, SHORTNESS OF BREATH TECHNIQUE: Noncontrast 1mm axial images were acquired from the pulmonary apices to the posterior costophrenic an gles. Axial 5 mm soft tissue kernel reconstructions were performed as well as 8 mm axial MIP and cor onal and sagittal 5 mm reformations. For radiation dose reduction, the following was used: automate d exposure control, adjustment of mA and/or kV according to patient size. COMPARISON: CXR 09/22/2021. FINDINGS: Image quality: Excellent. Lungs and pleura: There are a few small groundglass pulmonary opacities. For example right middle lob e juxta fissural measuring 0.6 cm, (4/189) and left upper lobe 0.8 cm, (4/97). Dependent atelectasis . Mild emphysematous change. No pleural effusions or pneumothorax. Central and peripheral airways ar e patent and normal in caliber. Mediastinum: Heart size is normal. Mild coronary artery calcifications. No pericardial effusion. No mediastinal adenopathy by size criteria. Thoracic aorta and central pulmonary arteries are normal i n size. Esophagus is normal in caliber. Large hiatal hernia. Bones and chest wall: No suspicious bony lesions. No vertebral body compression fractures. No axil efe or supraclavicular adenopathy by size criteria. The thyroid is normal in size and there are no incidental findings. Abdomen: Visualized upper abdominal solid organs and bowel loops appear normal in the absence of con trast. Right renal cortical thinning. Post cholecystectomy. IMPRESSION: 1. No suspicious osseous lesion. No acute fracture. 2. Mild emphysematous change. Small groundglass pulmonary nodules. Largest measuring up to 0.8 cm in the left upper lobe.-Recommend follow-up CT chest in 3-6 months. 3. Large hiatal hernia. 4. Suspect right kidney cortical thinning. This could be due to medical renal disease. Results were communicated to Marixa in the office of Dr. Molly Walsh at 01/01/2022 4:40 PM PDT. Reviewed by: Kendrick Lassiter MD on 01/01/2022 4:40 PM PDT Approved by: Kendrick Lassiter MD on 01/01/2022 4:40 PM PDT Station ID: [id number]
== END 2022-01-01 12:42 | disposition home or self-care (01) ==
LOC: DI 12:41
PROVIDERS: ATTEND Family Medicine
DX: J43.9 Emphysema, unspecified (principal); R91.8 Other nonspecific abnormal finding of lung field; K44.9 Diaphragmatic hernia without obstruction or gangrene

== ENCOUNTER 2022-01-11 12:16 | Outpatient (CLI) | payer MEDICARE, OTHER ==
--- NOTE | 2022-01-11 14:03 | CARDIAC PROCEDURE NOTE ---
Stress Test Report Service Date: 01/11/22 Service Time: 12:30 Ordering Provider: Jerome Walsh DO Indication for Test: Assess for an ischemic contribution to exertional dyspnea. Significant Medical History: Nicolasa reports a smoking history of about 1 pack per day as a younger adult until she quit around the year 1999. Subsequently she has had symptoms/signs of COPD, treated with a bronchodilator regimen. Her shortness of breath was stable for a long time, but in the past year she has experienced a lower threshold for onset of dyspnea with exertion. She initially noticed this with walking around her sloped property, but she can still take walks on a flatter course around her neighborhood, about 1/2 mile 3-4 times weekly. She has also had some lower right-sided chest discomfort, with rather random onset, possibly worse after meals. She denies associated diaphoresis, increased work of breathing and lightheadedness being associated with this discomfort, and mentions that she may undergo an upper endoscopy to evaluate this further (thus there is concern for a GI contribution). Cardiac Risk Factors: Positive for treated hypertension and hyperlipidemia; she has no history of diabetes or awareness of close family members with coronary heart disease. Although she has a significant smoking history, given the nearly two decades since she discontinued this is not a strong risk factor for her. Type of Stress Test: Pharmacologic Stress Test with MPI Pharmacologic Agent: Lexiscan Procedure: -Pharmacologic Stress Test- After signing informed consent, the patient underwent rest SPECT imaging and then performed a walking Lexiscan pharmacologic stress test. After obtaining resting vital signs and EKG (resting), the patient walked for 2 minutes (without elevation) at 0.8 mph ("baseline") followed by injection of Lexiscan and high dose 99Tc-Myoview with an additional 2 minutes of walking ("peak" reassessment) followed by monitoring for an additional 4 minutes ("recovery"). The test was terminated due to completing the protocol. Resting HR: 88 Baseline HR: 110 Peak HR: 135 Normal HR response. Resting BP: 193/97 Baseline BP: 192/93 Peak BP: 206/101 Hypertensive at rest with physiologic BP response to walking/Lexiscan. Rhythm during testing: Sinus rhythm throughout. Symptoms: Patient with mild dyspnea during first 2 minutes of walking, with noticeable increase following Lexiscan injection followed by dissipation during Recovery. She also noted a different discomfort "pain in my sternal bone" at the start of Recovery, that was fully resolved (along with her dyspnea) by 4:00 of Recovery. 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 EKG at peak stress showed no ischemia by EKG criteria. Nuclear imaging was performed at rest and with stress. The image interpretation will be reported separately. IBarney MD, was present throughout this walking Lexiscan stress study and supervised it in its entirety. Summary: 1) Abnormal resting EKG, consistent with prior anteroseptal infarct (though no known history of ME). 2) Adequate stress was likely achieved. 3) Hypertensive at rest with physiologic BP response to slow walking and Lexiscan administration. 4) No ischemic changes by EKG criteria were seen at peak stress. 5) Analysis of gated nuclear images reveals normal left ventricular size and systolic function; SPECT analysis reveals normal perfusion of the left ventricle at rest and following treadmill stress, thus no evidence of prior infarct or inducible ischemia. See separate report for more detail. CONCLUSIONS: 1) Low risk study results, NOT supporting an ischemic contribution to her exertional dyspnea, nor for prior ME being causative of EKG findings in leads V1-V3. 2) Given her significant resting BP elevation in spite of taking her AM lisinopril today she is encouraged to redouble her focus on adequacy of BP control, through additional home BP monitoring and review of data obtained with her care team. 3) Results reviewed with patient's on 01/16/22.
[2022-01-11] MEDS ORDERED: REGADENOSON 0.4 MG/5 ML SYRINGE IVP ONE ×2 (14:30→14:57)
[2022-01-11] MEDS ORDERED: AMINOPHYLLINE 500 MG/20 ML VIAL ONE (14:30)
--- NOTE | 2022-01-11 16:42 | Nuclear Medicine Report ---
PROCEDURE: Rest and pharmacological stress myocardial perfusion SPECT with gated imaging and ejection fraction INDICATIONS: SHORTNESS OF BREATH/ LEXISCAN RADIOPHARMACEUTICAL: 11.7 mCi Tc-99m Myoview IV at rest and 33.75 mCi Tc-99m Myoview IV at peak exer cise. [id number] was performed. TECHNIQUE: Radiopharmaceutical was injected at peak stress test, and also at rest. SPECT images wer e obtained. SPECT myocardial perfusion images were displayed in short axis, horizontal long axis, an d vertical long axis views. Gated images were reviewed using Auto[employer] software. COMPARISON: None available. FINDINGS: Raw data: There is good myocardial labeling by radiotracer. No significant motion artifacts. Lung- to-heart ratio is 0.25 (normal is less than 0.46 for tetrafosmin tracer). Left ventricle function: Gated images demonstrate normal left ventricle wall thickening. No segment al wall motion abnormality. No transient ischemic dilation; TID is 1.05 (normal less than 1.30). Th e left ventricle resting end-diastolic volume is normal. Left ventricle stress ejection fraction is> 70%; normal values are above 45%. Myocardial perfusion: There is normal distribution of activity in the left and right ventricular bharati cardium. No fixed or reversible perfusion defects. IMPRESSION: 1. Normal myocardial perfusion images. 2. Normal left ventricular volume and systolic function. 3. Please correlate with stress EKG result. PQRS ATTESTATIONS: Measure 322 - Is this imaging test primarily performed on a low-risk surgery patient for preoperative evaluation within 30 days preceding their low-risk non-cardiac surgery? Low-risk surgery is defined as cardiac or myocardial infarction less than 1%, including (but not limited to) endoscopic pr ocedures, superficial procedures, cataract surgery, and excisional breast surgery: Answer: No Measure 323 - Is this imaging test performed primarily for the monitoring of an asymptomatic patient who had percutaneous coronary intervention on the visit date or within 2 years of the visit date? An swer: No Measure 324 - Is this imaging test performed primarily for the initial detection and risk assessment on an asymptomatic, low coronary heart disease patient? Low CHD risk definition = clinicians should consider the maximum number of available patient factors used to estimate risk based on Killbuck (A TP III criteria), typically age, gender, diabetes, smoking status, and use of blood pressure medicati on, and integrate age appropriate estimates for missing elements, such as LDL or standard blood press ure. Answer: No Reviewed by: Syed Raymond MD on 01/11/2022 4:41 PM PDT Approved by: Syed Raymond MD on 01/11/2022 4:41 PM PDT Station ID: [id number]
== END 2022-01-11 12:17 | disposition home or self-care (01) ==
LOC: DI 12:16
PROVIDERS: ATTEND Family Medicine
DX: R06.02 Shortness of breath (principal); R73.01 Impaired fasting glucose; E78.5 Hyperlipidemia, unspecified; Z87.891 Personal history of nicotine dependence; I10 Essential (primary) hypertension
CPT/HCPCS: 78452; 93016; 93017; 93018; A9500; J2785

== ENCOUNTER 2022-01-30 13:10 | Outpatient (CLI) | payer MEDICARE, OTHER | END 2022-01-30 13:11 | disposition home or self-care (01) | LOC: RT 13:10 | PROVIDERS: ATTEND Family Medicine | DX: J44.9 Chronic obstructive pulmonary disease, unspecified (principal) | CPT/HCPCS: 94010 ==

== ENCOUNTER 2022-04-23 12:10 | Outpatient (CLI) | payer MEDICARE, OTHER ==
--- NOTE | 2022-04-23 15:14 | CT Report ---
PROCEDURE: CHEST WO INDICATIONS: NODULE OF LUNG TECHNIQUE: Noncontrast 1mm axial images were acquired from the pulmonary apices to the posterior costophrenic an gles. Axial 5 mm soft tissue kernel reconstructions were performed as well as 8 mm axial MIP and cor onal and sagittal 5 mm reformations. For radiation dose reduction, the following was used: automate d exposure control, adjustment of mA and/or kV according to patient size. COMPARISON: 01/01/2022 FINDINGS: Image quality: Excellent. Lungs and pleura: Central and peripheral airways are patent and of normal caliber. No suspicious bro nchial wall thickening or bronchiectasis. Upper lobes redemonstrate mild centrilobular emphysematous changes. There are groundglass nodules laterally in the left upper lobe, a subpleural nodule measurin g 1.1 cm, stable size when remeasured compared to the other exam, and one slightly more medial measur ing 1.1 cm, slightly larger (previously 0.9 cm). These are seen on series 4 images 90 and 92 respecti vely. Juxta fissural groundglass nodule in the posterior right middle lobe measures 8 mm, stable (/ 88). Scattered areas of subpleural reticulation are present. There is minor interstitial thickening a t both lung bases, stable and consistent with scarring. No dense consolidations or pleural effusions. Mediastinum: Heart size is normal. Mild aortic valvular and coronary artery calcification. No peric ardial effusion. No mediastinal adenopathy by size criteria. Thoracic aorta and central pulmonary a rteries are normal in size. Esophagus is normal in caliber. Large hiatal hernia. Bones and chest wall: No suspicious bony lesions. No vertebral body compression fractures. No axil efe or supraclavicular adenopathy by size criteria. The thyroid is normal in size and there are no incidental findings. Abdomen: Upper abdomen demonstrates cholecystectomy changes. Solid organs are otherwise normal. There is a tiny fat-containing ventral hernia in the epigastric region. IMPRESSION: 1. Stable left upper and right middle lobe groundglass nodules on a background of mild emphysema. Con tinued follow-up in one year for at least 5 years is recommended as these may represent indolent or i n situ neoplasm. 2. Large, chronic hiatal hernia. 3. Aortic valvular and coronary artery calcification. Reviewed by: Torrie Dozier MD on 04/23/2022 3:13 PM PDT Approved by: Torrie Dozier MD on 04/23/2022 3:13 PM PDT Station ID: [id number]
== END 2022-04-23 12:11 | disposition home or self-care (01) ==
LOC: DI 12:10
PROVIDERS: ATTEND Physician Assistant
DX: R91.8 Other nonspecific abnormal finding of lung field (principal); J43.9 Emphysema, unspecified; K44.9 Diaphragmatic hernia without obstruction or gangrene

== ENCOUNTER 2022-08-28 11:10 | Outpatient (CLI) | payer MEDICARE, OTHER ==
--- NOTE | 2022-08-29 10:06 | Mammography Report ---
BILATERAL DIGITAL SCREENING MAMMOGRAM 3D/2D: 08/28/2022 CLINICAL: Routine screening. Comparison is made to exams dated: 08/25/2021 mammogram, 06/26/2020 mammogram, 05/11/2019 mammogram, mammogram, and 02/13/2013 mammogram - [facility]. There are scattered areas of fibroglandular density in both breasts (category b / 25%-50% glandular t issue). No significant masses, calcifications, or other findings are seen in either breast. There has been no significant interval change. IMPRESSION: NEGATIVE There is no mammographic evidence of malignancy. A 1 year screening mammogram is recommended. Based on the Tyrer Cuzick model (a risk assessment model) the patients lifetime risk is 1.0% and her 10 year risk is 0.0%. According to the ACR, ACS, and NCCN guidelines, an annual breast MRI exam leroy g with mammogram is recommended if the patients lifetime risk is 20% or greater. This exam was interpreted at Station ID: [id number]. NOTE: For mammograms, a report in lay terms will be sent to the patient. Approximately 15% of breast malignancies will not be visualized mammographically. In the management of a palpable breast mass, a negative mammogram must not discourage biopsy of a clinically suspicious lesion. Electronically Signed By: Mukesh piper/barry:08/28/2022 13:16:30 ACR BI-RADS Category 1: Negative 3341F PARENCHYMAL PATTERN: (A) - The breast(s) demonstrate(s) scattered fibroglandular densities. BI-RADS CATEGORY: (1) - 1 RECOMMENDATION: (ANNUAL) - Recommend routine annual screening mammography. [id number] 1 year screening LATERALITY: (B)
== END 2022-08-28 11:11 | disposition home or self-care (01) ==
LOC: DI 11:10
DX: Z12.31 Encounter for screening mammogram for malignant neoplasm of breast (principal)

== ENCOUNTER 2022-09-03 07:44 | Outpatient (CLI) | payer MEDICARE, OTHER ==
[2022-09-03 08:01] LABS: BASOPHILS # (AUTO) 0.1 10^3/uL (0.0-0.1); BASOPHILS % (AUTO) 1.1 %; EOSINOPHILS # (AUTO) 0.3 10^3/uL (0.0-0.7); EOSINOPHILS % (AUTO) 3.9 %; HCT - HEMATOCRIT 43.3 % (37.0-47.0); HGB - HEMOGLOBIN 14.7 g/dL (12.0-16.0); LYMPHOCYTES # (AUTO) 1.9 10^3/uL (1.5-3.5); LYMPHOCYTES % (AUTO) 26.5 %; MEAN CORPUSCULAR HEMOGLOBIN 33.9 pg (27.0-31.0); MEAN CORPUSCULAR HGB CONC 33.9 g/dL (32.0-36.0); MEAN PLATELET VOLUME 9.6 fL (7.9-10.8); MONOCYTES # (AUTO) 0.6 10^3/uL (0.0-1.0); MONOCYTES % (AUTO) 8.4 %; NEUTROPHILS # (AUTO) 4.3 10^3/uL (1.5-6.6); PLT - PLATELET COUNT 200 10^3/uL (130-450); RED BLOOD COUNT 4.33 10^6/uL (4.20-5.40); RED CELL DISTRIBUTION WIDTH 11.7 % (12.0-15.0); WHITE BLOOD COUNT 7.1 x10^3/uL (4.8-10.8)
[2022-09-03 08:26] LABS: ALBUMIN 3.9 g/dL (3.2-5.5); ALBUMIN/GLOBULIN RATIO 1.2 (1.0-2.2); ALKALINE PHOSPHATASE 71 IU/L (42-121); ALT ALANINE AMINOTRANSFERASE 23 IU/L (10-60); AST ASPARTATE AMINOTRANSFERASE 22 IU/L (10-42); BILIRUBIN,TOTAL 0.4 mg/dL (0.2-1.0); BUN - BLOOD UREA NITROGEN 16 mg/dL (6-20); CALCIUM 9.2 mg/dL (8.5-10.3); CARBON DIOXIDE - CO2 28 mmol/L (21-32); CHLORIDE 101 mmol/L (101-111); CHOL/HDL RATIO 4.2 (<4.4); CHOLESTEROL 190 mg/dL; CREATININE 0.9 mg/dL (0.4-1.0); GFR - MDRD 60 (>89); GLUCOSE 135 mg/dL (70-100); HDL CHOLESTEROL 45 mg/dL; LDL CHOLESTEROL,CALCULATED 102 mg/dL; LDL/HDL RATIO 2.3 (<4.4); POTASSIUM 4.5 mmol/L (3.5-5.0); SODIUM 137 mmol/L (135-145); TOTAL PROTEIN 7.1 g/dL (6.7-8.2); TRIGLYCERIDES 216 mg/dL; VLDL CHOLESTEROL 43 mg/dL
[2022-09-03 08:31] LABS: THYROID STIMULATING HORMONE 7.17 uIU/mL (0.34-5.60)
[2022-09-03 11:05] LABS: FREE T4 (FREE THYROXINE) 0.6 ng/dL (0.58-1.64)
[2022-09-03 11:27] LABS: ESTIMATED AVERAGE GLUCOSE 108 mg/dL (70-100); HEMOGLOBIN A1c% 5.4 % (4.27-6.07)
== END 2022-09-03 07:45 | disposition home or self-care (01) ==
LOC: LAB 07:44
PROVIDERS: ATTEND Physician Assistant
DX: I10 Essential (primary) hypertension (principal); E78.5 Hyperlipidemia, unspecified; E78.1 Pure hyperglyceridemia; R73.03 Prediabetes; Z13.29 Encounter for screening for other suspected endocrine disorder
CPT/HCPCS: 36415; 80053; 80061; 83036; 83721; 84439; 84443; 85025

== ENCOUNTER 2022-09-12 09:46 | Outpatient (CLI) | payer MEDICARE, OTHER ==
--- NOTE | 2022-09-12 10:42 | XRAY Report ---
PROCEDURE: Hips 2V BILAT INDICATIONS: HIP PAIN,RIGHT TECHNIQUE: The AP view the pelvis and bilateral frog-leg lateral views hips were acquired. COMPARISON: None FINDINGS: Bones: No fractures or dislocations. No suspicious bony lesions. The visualized pelvic ring appear s intact. Bilateral hip degenerative change, mild on the right and mild to moderate on the left. Soft tissues: No suspicious soft tissue calcifications or masses. IMPRESSION: Bilateral hip degenerative change, left greater than right. No evidence acute bony abnormality of the pelvis and bilateral hips. If clinical suspicion and/or symptoms persist, further assessment with repeat plain films or advanced imaging (e.g., CT, MRI, or bone scan) may be helpful for further assessment. Reviewed by: Jesus Chi MD on 09/12/2022 10:40 AM [facility] Approved by: Jesus Chi MD on 09/12/2022 10:40 AM [facility] Station ID: [id number]
== END 2022-09-12 09:47 | disposition home or self-care (01) ==
LOC: DI 09:46
PROVIDERS: ATTEND Physician Assistant
DX: M16.0 Bilateral primary osteoarthritis of hip (principal)

== ENCOUNTER 2023-06-12 08:15 | Outpatient (CLI) | payer MEDICARE, OTHER ==
[2023-06-12 08:28] LABS: BASOPHILS # (AUTO) 0.1 10^3/uL (0.0-0.1); EOSINOPHILS # (AUTO) 0.3 10^3/uL (0.0-0.7); EOSINOPHILS % (AUTO) 3.8 %; HCT - HEMATOCRIT 41.6 % (37.0-47.0); HGB - HEMOGLOBIN 14.1 g/dL (12.0-16.0); LYMPHOCYTES # (AUTO) 1.6 10^3/uL (1.5-3.5); LYMPHOCYTES % (AUTO) 22.6 %; MEAN CORPUSCULAR HEMOGLOBIN 34.8 pg (27.0-31.0); MEAN CORPUSCULAR HGB CONC 33.9 g/dL (32.0-36.0); MEAN CORPUSCULAR VOLUME 102.7 fL (81.0-99.0); MEAN PLATELET VOLUME 9.5 fL (7.9-10.8); MONOCYTES # (AUTO) 0.6 10^3/uL (0.0-1.0); MONOCYTES % (AUTO) 8.1 %; NEUTROPHILS # (AUTO) 4.4 10^3/uL (1.5-6.6); NEUTROPHILS % (AUTO) 64.2 %; PLT - PLATELET COUNT 186 10^3/uL (130-450); RED BLOOD COUNT 4.05 10^6/uL (4.20-5.40); RED CELL DISTRIBUTION WIDTH 11.1 % (12.0-15.0); WHITE BLOOD COUNT 6.9 x10^3/uL (4.8-10.8)
[2023-06-12 08:59] LABS: ALBUMIN/GLOBULIN RATIO 1.4 (1.0-2.2); ALKALINE PHOSPHATASE 75 IU/L (42-121); ALT ALANINE AMINOTRANSFERASE 13 IU/L (10-60); AST ASPARTATE AMINOTRANSFERASE 17 IU/L (10-42); BILIRUBIN,TOTAL 0.5 mg/dL (0.2-1.0); BUN - BLOOD UREA NITROGEN 14 mg/dL (6-20); CALCIUM 9.2 mg/dL (8.5-10.3); CARBON DIOXIDE - CO2 29 mmol/L (21-32); CHLORIDE 102 mmol/L (101-111); CHOL/HDL RATIO 3.7 (<4.4); CHOLESTEROL 187 mg/dL; CREATININE 0.9 mg/dL (0.6-1.3); GFR - MDRD 60 (>89); GLUCOSE 118 mg/dL (74-104); HDL CHOLESTEROL 50 mg/dL; LDL CHOLESTEROL,CALCULATED 97 mg/dL; LDL/HDL RATIO 1.9 (<4.4); POTASSIUM 4.6 mmol/L (3.5-4.5); SODIUM 137 mmol/L (135-145); TOTAL PROTEIN 6.9 g/dL (6.4-8.9); TRIGLYCERIDES 200 mg/dL (48-352); VLDL CHOLESTEROL 40 mg/dL
[2023-06-12 09:01] LABS: THYROID STIMULATING HORMONE 7.35 uIU/mL (0.34-5.60)
[2023-06-12 12:16] LABS: ESTIMATED AVERAGE GLUCOSE 108 mg/dL (70-100); HEMOGLOBIN A1c% 5.4 % (4.27-6.07)
== END 2023-06-12 08:16 | disposition home or self-care (01) ==
LOC: LAB 08:15
PROVIDERS: ATTEND Nurse Practitioner
DX: R73.01 Impaired fasting glucose (principal); I10 Essential (primary) hypertension; E78.1 Pure hyperglyceridemia; R94.6 Abnormal results of thyroid function studies
CPT/HCPCS: 36415; 80053; 80061; 83036; 83721; 84439; 84443; 84481; 85025

== ENCOUNTER 2023-08-08 14:42 | Outpatient (CLI) | payer MEDICARE, OTHER ==
--- NOTE | 2023-08-09 15:14 | Mammography Report ---
BILATERAL DIGITAL SCREENING MAMMOGRAM 3D/2D: 08/08/2023 CLINICAL: Routine screening. Comparison is made to exams dated: 08/28/2022 mammogram, 08/25/2021 mammogram, 06/26/2020 mammogram, 05/11/2019 mammogram, 03/24/2018 mammogram, and 03/19/2017 mammogram - [facility]. There are scattered areas of fibroglandular density in both breasts (category b / 25%-50% glandular t issue). No significant masses, calcifications, or other findings are seen in either breast. There has been no significant interval change. IMPRESSION: NEGATIVE There is no mammographic evidence of malignancy. A 1 year screening mammogram is recommended. Based on the Tyrer Cuzick model (a risk assessment model) the patients lifetime risk is 0.8% and her 10 year risk is 0.0%. According to the ACR, ACS, and NCCN guidelines, an annual breast MRI exam leory g with mammogram is recommended if the patients lifetime risk is 20% or greater. This exam was interpreted at Station ID: [id number]. NOTE: For mammograms, a report in lay terms will be sent to the patient. Approximately 15% of breast malignancies will not be visualized mammographically. In the management of a palpable breast mass, a negative mammogram must not discourage biopsy of a clinically suspicious lesion. Electronically Signed By: Mukesh piper/barry:08/08/2023 16:52:33 letter sent: No_Letter ACR BI-RADS Category 1: Negative 3341F PARENCHYMAL PATTERN: (A) - The breast(s) demonstrate(s) scattered fibroglandular densities. BI-RADS CATEGORY: (1) - 1 Mammogram [id number] 1 year screening LATERALITY: (B)
== END 2023-08-08 14:43 | disposition home or self-care (01) ==
LOC: DI 14:42
DX: Z12.31 Encounter for screening mammogram for malignant neoplasm of breast (principal); R92.323 Mammographic fibroglandular density, bilateral breasts

== ENCOUNTER 2023-10-14 10:08 | Outpatient (CLI) | payer MEDICARE, OTHER ==
[2023-10-14 10:56] LABS: THYROID STIMULATING HORMONE 5.3 uIU/mL (0.34-5.60)
== END 2023-10-14 10:09 | disposition home or self-care (01) ==
LOC: LAB 10:08
PROVIDERS: ATTEND Physician Assistant
DX: R94.6 Abnormal results of thyroid function studies (principal)
CPT/HCPCS: 36415; 84439; 84443; 84481

== ENCOUNTER 2023-10-14 10:39 | Outpatient (CLI) | payer MEDICARE, OTHER ==
--- NOTE | 2023-10-14 15:58 | XRAY Report ---
PROCEDURE: Chest 2V INDICATIONS: COSTOCHONDRAL CHEST PAIN TECHNIQUE: 2 views of the chest were acquired. COMPARISON: Chest x-ray 04/23/2022 FINDINGS: Surgical changes and devices: None. Lungs and pleura: No pleural effusions or pneumothorax. Lungs are clear. Mediastinum: Mediastinal contours appear normal. Heart size is normal. Bones and chest wall: No suspicious bony lesions. Overlying soft tissues appear unremarkable. IMPRESSION: No acute cardiopulmonary process. Reviewed by: Radha Cordova MD on 10/14/2023 3:57 PM PST Approved by: Radha Cordova MD on 10/14/2023 3:57 PM [facility] Station ID: [id number]
== END 2023-10-14 10:40 | disposition home or self-care (01) ==
LOC: DI 10:39
PROVIDERS: ATTEND Physician Assistant
DX: R07.89 Other chest pain (principal); R94.6 Abnormal results of thyroid function studies
CPT/HCPCS: 36415; 84439; 84443; 84481

== ENCOUNTER 2024-01-15 07:29 | Outpatient (CLI) | payer MEDICARE, OTHER | END 2024-01-15 07:30 | disposition home or self-care (01) | LOC: LAB 07:29 | PROVIDERS: ATTEND Physician Assistant | DX: R94.6 Abnormal results of thyroid function studies (principal) | CPT/HCPCS: 84439; 84443; 84481 ==

== ENCOUNTER 2024-01-17 07:31 | Outpatient (CLI) | payer MEDICARE, OTHER ==
[2024-01-17 08:18] LABS: THYROID STIMULATING HORMONE 5.06 uIU/mL (0.34-5.60)
== END 2024-01-17 07:32 | disposition home or self-care (01) ==
LOC: LAB 07:31
PROVIDERS: ATTEND Physician Assistant
DX: R94.6 Abnormal results of thyroid function studies (principal)
CPT/HCPCS: 36415; 84439; 84443; 84481

== ENCOUNTER 2024-02-06 07:21 | Outpatient (CLI) | payer MEDICARE, OTHER ==
[2024-02-06 07:49] LABS: BASOPHILS # (AUTO) 0.1 10^3/uL (0.0-0.1); EOSINOPHILS # (AUTO) 0.2 10^3/uL (0.0-0.7); EOSINOPHILS % (AUTO) 3.2 %; HGB - HEMOGLOBIN 13.9 g/dL (12.0-16.0); LYMPHOCYTES # (AUTO) 1.9 10^3/uL (1.5-3.5); LYMPHOCYTES % (AUTO) 26.9 %; MEAN CORPUSCULAR HEMOGLOBIN 33.9 pg (27.0-31.0); MEAN CORPUSCULAR HGB CONC 33.1 g/dL (32.0-36.0); MEAN CORPUSCULAR VOLUME 102.4 fL (81.0-99.0); MEAN PLATELET VOLUME 9.9 fL (7.9-10.8); MONOCYTES # (AUTO) 0.6 10^3/uL (0.0-1.0); MONOCYTES % (AUTO) 8.6 %; NEUTROPHILS # (AUTO) 4.2 10^3/uL (1.5-6.6); PLT - PLATELET COUNT 201 10^3/uL (130-450); RED CELL DISTRIBUTION WIDTH 11.3 % (12.0-15.0); WHITE BLOOD COUNT 6.9 x10^3/uL (4.8-10.8)
[2024-02-06 07:54] LABS: ALBUMIN/GLOBULIN RATIO 1.3 (1.0-2.2); ALKALINE PHOSPHATASE 75 IU/L (42-121); ALT ALANINE AMINOTRANSFERASE 15 IU/L (10-60); AST ASPARTATE AMINOTRANSFERASE 18 IU/L (10-42); BILIRUBIN,TOTAL 0.4 mg/dL (0.2-1.0); BUN - BLOOD UREA NITROGEN 14 mg/dL (6-20); CALCIUM 9.3 mg/dL (8.5-10.3); CARBON DIOXIDE - CO2 29 mmol/L (21-32); CHLORIDE 105 mmol/L (101-111); CHOL/HDL RATIO 4.2 (<4.4); CHOLESTEROL 174 mg/dL; CREATININE 0.9 mg/dL (0.6-1.3); GFR - MDRD 60 (>89); GLUCOSE 122 mg/dL (74-104); HDL CHOLESTEROL 41 mg/dL; LDL CHOLESTEROL,CALCULATED 84 mg/dL; POTASSIUM 4.4 mmol/L (3.5-4.5); SODIUM 138 mmol/L (135-145); TRIGLYCERIDES 246 mg/dL (48-352); VLDL CHOLESTEROL 49 mg/dL
== END 2024-02-06 07:22 | disposition home or self-care (01) ==
LOC: LAB 07:21
PROVIDERS: ATTEND Nurse Practitioner Family
DX: R73.03 Prediabetes (principal); E78.1 Pure hyperglyceridemia; R73.01 Impaired fasting glucose; E55.9 Vitamin D deficiency, unspecified; I10 Essential (primary) hypertension; R91.1 Solitary pulmonary nodule; J44.9 Chronic obstructive pulmonary disease, unspecified
CPT/HCPCS: 36415; 80053; 80061; 82306; 83721; 85025

== ENCOUNTER 2024-02-07 09:55 | Outpatient (CLI) | payer MEDICARE, OTHER ==
[2024-02-07 10:10] LABS: BASOPHILS # (AUTO) 0.1 10^3/uL (0.0-0.1); BASOPHILS % (AUTO) 0.8 %; EOSINOPHILS # (AUTO) 0.2 10^3/uL (0.0-0.7); EOSINOPHILS % (AUTO) 2.6 %; HCT - HEMATOCRIT 42.9 % (37.0-47.0); HGB - HEMOGLOBIN 14.2 g/dL (12.0-16.0); LYMPHOCYTES # (AUTO) 1.8 10^3/uL (1.5-3.5); LYMPHOCYTES % (AUTO) 20.3 %; MEAN CORPUSCULAR HGB CONC 33.1 g/dL (32.0-36.0); MEAN CORPUSCULAR VOLUME 102.6 fL (81.0-99.0); MEAN PLATELET VOLUME 9.4 fL (7.9-10.8); MONOCYTES # (AUTO) 0.7 10^3/uL (0.0-1.0); MONOCYTES % (AUTO) 8.6 %; NEUTROPHILS # (AUTO) 5.8 10^3/uL (1.5-6.6); NEUTROPHILS % (AUTO) 67.4 %; PLT - PLATELET COUNT 220 10^3/uL (130-450); RED BLOOD COUNT 4.18 10^6/uL (4.20-5.40); RED CELL DISTRIBUTION WIDTH 11.3 % (12.0-15.0); WHITE BLOOD COUNT 8.6 x10^3/uL (4.8-10.8)
[2024-02-07 10:41] LABS: THYROID STIMULATING HORMONE 4.79 uIU/mL (0.34-5.60)
== END 2024-02-07 09:56 | disposition home or self-care (01) ==
LOC: LAB 09:55
PROVIDERS: ATTEND Nurse Practitioner Family
DX: R94.6 Abnormal results of thyroid function studies (principal); R73.03 Prediabetes
CPT/HCPCS: 36415; 84443; 85025

== ENCOUNTER 2024-03-26 13:18 | Outpatient (CLI) | payer MEDICARE, OTHER ==
--- NOTE | 2024-03-26 14:21 | DEXA Report ---
PROCEDURE: Dexa Spine and/or Hip INDICATIONS: POST MENOPAUSAL TECHNIQUE: Dual energy x-ray absorptiometry (DXA) was performed on a NoteSick System. Regions measur ed are the AP Spine, femoral neck, and if needed forearm. COMPARISON: 12/16/2018 FINDINGS: Lumbar Spine: Bone Mineral Density: 1.025 g/cm/cm,T score: -1.3. Since the most recent prior study, there has been a statistically significant increase in bone mineral density by 13.3 percent. However, segmentation of the lumbar spine appears to be performed in a different manner when compared to the prior exam and direct comparison made not be accurate. Left Femoral Neck: Bone Mineral Density: 0.705 g/cm/cm, T score: -2.4. Left Hip: Bone Mineral Density: 0.724 g/cm/cm,T score: -2.2. There has been no statistically significant change in bone mineral density since the prior study. (T score greater or equal to -1.0: NORMAL) (T score from -1.1 to -2.4: OSTEOPENIA) (T score less than or equal to -2.5 to: OSTEOPOROSIS) Impression: By WHO criteria, this patient has low bone density (osteopenia). Patients with diagnosis of osteoporosis or osteopenia should have regular bone mineral density assess ment. For those eligible for Medicare, routine testing is allowed once every 2 years. Testing frequ ency can be increased for patients who have rapidly progressing disease or for those who are receivin g medical therapy to restore bone mass. Reviewed by: Stiven Hay MD on 03/26/2024 2:20 PM PDT Approved by: Stiven Hay MD on 03/26/2024 2:20 PM PDT Station ID: [id number]
== END 2024-03-26 13:19 | disposition home or self-care (01) ==
LOC: DI 13:18
PROVIDERS: ATTEND Nurse Practitioner Family
DX: M85.89 Other specified disorders of bone density and structure, multiple sites (principal); Z78.0 Asymptomatic menopausal state